=== PATIENT | male | born 1965 | race Caucasian/White ===

== ENCOUNTER 2018-05-19 16:24 | Inpatient (IN) | payer OTHER ==
--- NOTE | 2018-05-19 16:52 | EDPHY ---
HPI/HX/ROS/PE/MDM Narrative: CHIEF COMPLAINT: Abdominal pain HISTORY OF PRESENT ILLNESS: This patient is a 53 year old male with history of osteoarthritis. One hour ago , he developed paresthesias in his left chest. He subsequently developed a stabbing, aching pain in his LUQ and lower abdomen with associated nausea and vomiting. Nothing makes his pain better or worse. He denies hematuria. He endorses diarrhea for last two days. He has never had similar pain in the past. He notes he had a gastric bypass four years ago with significant weight loss following. The patient notes he has taken Percocet regularly for two years for osteoarthritis, but has not taken this for the past week. He denies any cardiac history. No history of diabetes. No fever, chills, shortness of breath, palpitations, urinary complaints, headache, lightheadedness, syncope. REVIEW OF SYSTEMS: A comprehensive 10 system review of systems is otherwise negative aside from elements mentioned in the history of present illness and medical decision making. PAST MEDICAL HISTORY: Osteoarthritis and chronic pain (tramadol, morphine, oxycodone, Percocet). SOCIAL HISTORY: . Employed. No alcohol, tobacco, or illicit drug use. VITAL SIGNS: Reviewed by me GENERAL: Pale, uncomfortable-appearing. In no respiratory distress. HEENT: Atraumatic. Eyes: No icterus, no injection. Mouth: moist mucous membranes. No erythema or lesions. Neck: supple with no adenopathy. LUNGS: Clear to auscultation bilaterally, no wheezes, rhonchi or rales. CARDIAC: Regular rate and rhythm, no rubs, murmurs or gallops. ABDOMEN: Abdominal tenderness throughout particularly left lateral, no guarding or rebound. Nondistended. BACK: No CVA tenderness. EXTREMITIES: No trauma. No edema. Range of motion is normal throughout. NEURO: Alert and oriented, grossly nonfocal. SKIN: Warm and dry, no rash. PSYCHIATRIC: Normal mentation, no agitation. Portions of this note were transcribed by a lpn or medical assistant. I personally performed a history, physical exam, medical decision making, and confirmed accuracy of information the transcribed note. ED Course: 53 year old male presents with acute abdominal pain beginning this afternoon one hour prior to arrival. Plan for labs including CBC, chemistries, liver panel. Plan to administer 1L IV NS and 1mg IV Dilaudid for symptom relief. Plan for CT abdomen/pelvis. Patient initially refused CT, but upon further discussion, he agrees. Plan to proceed with CT abdomen/pelvis without contrast. Additionally, patient notes he prefers morphine to Dilaudid, so we will manage pain with this. 18:[address] Roman, radiologist. CT abdomen/pelvis shows perforated viscus of unknown etiology. Patient re-examined. No fever. Pain improved with morphine; abdominal exam remains moderately tender, no distention. Patient's last PO was around 13:00 today. He has been counseled to remain NPO. 19:[address] Guajardo, general surgeon. She will consult. 1920 Patient will go to OR under the care of Dr. Guajardo. Plan to administer IV ceftriaxone and Flagyl. MDM: Diff dx of patients presenting complaint considered including but not limited to kidney stone, perforated viscus, diverticulitis with perforation, gastric ulcer, pancreatitis, bowel obstruction, opiate withdrawal. - Data Points Imaging Results: Imaging Impressions Abdomen/Pelvis CT 05/19/18 16:56 Impression: 1. Perforation of unknown etiology. If clinically indicated consider CT with IV contrast for further characterization and attempt to identify the etiology of the perforation. 2. No renal obstruction or urinary tract calculus. A message was left for Dr. Peters at 6:55 PM. Attention: This CT examination is specifically designed to evaluate patients who are clinically suspected of having acute obstructive uropathy. This examination does not use radiographic contrast, and as such, provides only a limited evaluation of the abdomen, pelvis and retroperitoneum. If there is further clinical suspicion for pathological conditions other than obstructive uropathy, a complete CT evaluation of the abdomen and pelvis utilizing intravenous, oral, and rectal contrast should be considered. General information for patients regarding this examination can be found at [email or web address]. If you have questions or comments about this report, please contact me at (hospital) or [phone] (cell). Imaging: Discussed imaging studies w/ call center operator Radiologist Laboratory Results: Laboratory Results 05/19/18 16:55 05/19/18 16:55 05/19/18 05/19/18 16:55 16:55 WBC 9.17 10^3/uL 10^3/uL (3.80-9.50) RBC 5.04 10^6/uL 10^6/uL (4.40-6.38) Hgb 15.6 g/dL g/dL (13.7-17.5) Hct 46.1 % % (40.0-51.0) MCV 91.5 fL fL (81.5-99.8) MCH 31.0 pg pg (27.9-34.1) MCHC 33.8 g/dL g/dL (32.4-36.7) RDW 13.6 % % (11.5-15.2) Plt Count 230 10^3/uL 10^3/uL (150-400) MPV 10.3 fL fL (8.7-11.7) Neut % (Auto) 58.5 % % (39.3-74.2) Lymph % (Auto) 32.9 % % (15.0-45.0) [place] % (Auto) 7.1 % % (4.5-13.0) Eos % (Auto) 0.8 % % (0.6-7.6) Baso % (Auto) 0.4 % % (0.3-1.7) Nucleat RBC Rel Count 0.0 % % (0.0-0.2) Absolute Neuts (auto) 5.36 10^3/uL 10^3/uL (1.70-6.50) Absolute Lymphs (auto) 3.02 10^3/uL H 10^3/uL (1.00-3.00) Absolute Monos (auto) 0.65 10^3/uL 10^3/uL (0.30-0.80) Absolute Eos (auto) 0.07 10^3/uL 10^3/uL (0.03-0.40) Absolute Basos (auto) 0.04 10^3/uL 10^3/uL (0.02-0.10) Absolute Nucleated RBC 0.00 10^3/uL 10^3/uL (0-0.01) Immature Gran % 0.3 % % (0.0-1.1) Immature Gran # 0.03 10^3/uL 10^3/uL (0.00-0.10) Sodium 138 mEq/L mEq/L (135-145) Potassium 4.3 mEq/L mEq/L (3.5-5.2) Chloride 108 mEq/L mEq/L (97-110) Carbon Dioxide 20 mEq/l L mEq/l (22-31) Anion Gap 10 mEq/L mEq/L (6-14) BUN 18 mg/dL mg/dL (7-23) Creatinine 0.9 mg/dL mg/dL (0.7-1.3) Estimated GFR > 60 Glucose 121 mg/dL H mg/dL (70-100) Calcium 9.2 mg/dL mg/dL (8.5-10.4) Total Bilirubin 0.8 mg/dL mg/dL (0.1-1.4) Conjugated Bilirubin 0.3 mg/dL mg/dL (0.0-0.5) Unconjugated Bilirubin 0.5 mg/dL mg/dL (0.0-1.1) AST 23 IU/L IU/L (17-59) ALT 51 IU/L IU/L (21-72) Alkaline Phosphatase 74 IU/L IU/L (38-126) Total Protein 7.4 g/dL g/dL (6.3-8.2) Albumin 4.3 g/dL g/dL (3.5-5.0) Medications Given: Discontinued Medications Hydromorphone HCl (Dilaudid) 1 mg IVP EDNOW ONE Stop: 05/19/18 16:56 Last Admin: 05/19/18 17:30 Dose: 1 mg Sodium Chloride (Ns) 1,000 mls @ 0 mls/hr IV EDNOW ONE; Wide Open PRN Reason: Protocol Stop: 05/19/18 16:56 Last Admin: 05/19/18 17:21 Dose: 1,000 mls Ceftriaxone Sodium/Dextrose (Rocephin 1 Gm (Premix)) 50 mls @ 100 mls/hr IV EDNOW ONE PRN Reason: Protocol Stop: 05/19/18 19:50 Last Admin: 05/19/18 19:30 Dose: 50 mls Morphine Sulfate (Morphine) 4 mg IVP EDNOW ONE Stop: 05/19/18 17:39 Last Admin: 05/19/18 17:45 Dose: 4 mg Morphine Sulfate (Morphine) 4 mg IVP EDNOW ONE Stop: 05/19/18 19:09 Last Admin: 05/19/18 19:19 Dose: 4 mg General Time Seen by Provider: 05/19/18 16:41 Initial Vital Signs: Initial Vital Signs Temperature (C) 37.2 C 05/19/18 16:31 Heart Rate 56 L 05/19/18 16:31 Respiratory Rate 17 05/19/18 16:31 Blood Pressure 117/74 05/19/18 16:31 O2 Sat (%) 99 05/19/18 16:31 O2 Delivery Mode Room Air Allergies/Adverse Reactions: No Known Allergies Allergy (Verified 05/20/18 08:51) Home Medications: Medication Instructions Recorded morphINE SR [Ms Contin/Oramorph 15 15 mg PO Q12H 05/19/18 mg (*)] traMADol HCL [Tramadol HCl] 50 mg PO Q6H PRN 05/19/18 Acetaminophen [Tylenol 325mg (*)] 325 mg PO Q6 PRN 05/20/18 Acetaminophen [Tylenol 325mg (*)] 325 - 650 mg PO Q4HRS PRN tab 05/26/18 Pantoprazole Sodium [Protonix 40mg 40 mg PO BID #60 tab 05/26/18 (*)] Sucralfate [Carafate 1 GM (*)] 1 gm PO ACHS #30 g 05/26/18 levOFLOXACIN [Levaquin] 500 mg PO DAILY 10 Days tablet 05/26/18 metroNIDAZOLE [Flagyl 500 mg (*)] 500 mg PO BID #20 tab 05/26/18 oxyCODONE IR [Oxycodone Ir (*)] 10 mg PO Q6H PRN #10 tab 05/26/18 Departure - Departure Disposition: [facility] Inpatient Acute Clinical Impression: Perforated viscus Abdominal pain Qualifiers: Abdominal location: generalized Qualified Code(s): R10.84 - Generalized abdominal pain Condition: Serious Report Scribed for: Suzanna Peters Report Scribed by: Judith Mata Date of Report: 05/19/18 Time of Report: 19:22
[2018-05-19] MEDS ORDERED: HYDROmorphONE/DILAUDID 2 MG/ML INJ IVP ONE (16:55)
[2018-05-19] MEDS ORDERED: NS 1,000 ML IV ONE (16:55)
[2018-05-19 17:18] LABS: PLATELET COUNT 230 10^3/uL (150-400)
[2018-05-19] MEDS ORDERED: HYDROmorphONE/DILAUDID 1 MG/ML INJ ONE (17:20)
[2018-05-19] MEDS ORDERED: BUPIVACAINE 0.5% 30 ML SDV ONE (19:36)
[2018-05-19] MEDS ORDERED: ACETAMINOPHEN 325 MG TAB PO PRN (19:48)
[2018-05-19] MEDS ORDERED: PROMETHAZINE HCL 25 MG/ML INJ IVP PRN (19:48)
[2018-05-19] MEDS ORDERED: ONDANSETRON 4 MG/2 ML VIAL IVP PRN ×2 (19:48→20:03)
[2018-05-19] MEDS ORDERED: MIDAZOLAM 2 MG/2 ML VIAL ONE (20:01)
[2018-05-19] MEDS ORDERED: MIDAZOLAM 2 MG/2 ML VIAL IVP ONE (20:02)
--- NOTE | 2018-05-19 20:02 | PDANEPAE ---
ANE History of Present Illness here for diagnostic lap ANE Past Medical History - Cardiovascular History Hx Hypertension: No Hx Arrhythmias: No Hx Chest Pain: No Hx Coronary Artery / Peripheral Vascular Disease: No Hx CHF / Valvular Disease: No Hx Palpitations: No - Pulmonary History Hx COPD: No Hx Asthma/Reactive Airway Disease: No Hx Recent Upper Respiratory Infection: No Hx Oxygen in Use at Home: No - Endocrine History Hx Diabetes: No Hypothyroid: No Hyperthyroid: No Obesity: no - Renal History Hx Renal Disorders: No - Liver History Hx Hepatic Disorders: No - Neurological & Psychiatric Hx Hx Neurological and Psychiatric Disorders: No - Cancer History Hx Cancer: No ANE Review of Systems Review of systems is: negative Review of Systems: - Exercise capacity Exercise capacity: >=4 METS ANE Patient History - Allergies Allergies/Adverse Reactions: No Known Allergies Allergy (Unverified 05/19/18 16:30) - Home Medications Home medications: home medication list seen and reviewed Home Medications: busPIRone [Buspar (*)] 5 mg PO Q6H 05/19/18 [Last Taken Unknown] morphINE SR [Ms Contin/Oramorph 15 mg (*)] 15 mg PO BID 05/19/18 [Last Taken Unknown] oxyCODONE HCL [Oxycodone HCl ER] 20 mg PO BID 05/19/18 [Last Taken Unknown] traMADol HCL [Tramadol HCl] 50 mg PO Q6H PRN 05/19/18 [Last Taken Unknown] - NPO status NPO Status: no food or drink >8 hours NPO Since - Liquids (Date): 05/19/18 NPO Since - Liquids (Time): 13:00 NPO Since - Solids (Date): 05/19/18 NPO Since - Solids (Time): 13:00 - Anes Hx Anes Hx: no prior problems - Smoking Hx Smoking Status: Never smoked ANE Labs/Vital Signs - Labs Result Diagrams: 05/19/18 16:55 05/19/18 16:55 - Vital Signs Vital Signs: reviewed preoperatively; see RN documention for details Blood Pressure: 101/65 Heart Rate: 67 Respiratory Rate: 20 O2 Sat (%): 95 Height: 170.18 cm Weight: 81.647 kg ANE Physical Exam - Airway Neck exam: FROM Mallampati Score: Class 1 Mouth exam: normal dental/mouth exam - Pulmonary Pulmonary: no respiratory distress - Cardiovascular Cardiovascular: regular rate and rhythym - ASA Status ASA Status: II ANE Anesthesia Plan Anesthesia Plan: general endotracheal anesthesia
[2018-05-19] MEDS ORDERED: ALBUTEROL 3 ML DEYVIAL IH PRN (20:03)
[2018-05-19] MEDS ORDERED: HYDROmorphONE/DILAUDID 2 MG/ML INJ IVP PRN (20:03)
[2018-05-19] MEDS ORDERED: NS 500 ML IV PRN (20:03)
[2018-05-19] MEDS ORDERED: NALOXONE HCL 0.4 MG/ML INJ IVP PRN (20:03)
[2018-05-19] MEDS ORDERED: PROPOFOL/EMULSION 500 MG/50 ML BOTTLE IV ONE (20:06)
[2018-05-19] MEDS ORDERED: fentaNYL 250 MCG/5 ML INJ ONE (20:09)
[2018-05-19] MEDS ORDERED: DEXAMETHASONE 4 MG/ML VIAL ONE ×2 (20:18)
[2018-05-19] MEDS ORDERED: PHENYLEPHRINE HCL 100 MCG/ML SYR ONE (20:19)
--- NOTE | 2018-05-19 20:21 | GHP ---
[f rep st] HISTORY AND PHYSICAL DATE OF ADMISSION: 05/19/2018 CHIEF COMPLAINT: Free air. HISTORY OF PRESENT ILLNESS: The patient is a 53-year-old man who presented to the emergency room wit h left-sided abdominal pain. He reported that he initially had some paresthesias in his chest and th en developed abdominal pain. He had associated nausea but no emesis. He has had diarrhea. He says this is the worst pain he has ever had. PAST MEDICAL HISTORY: Osteoarthritis of his knee for which he takes Percocet for regularly. PAST SURGICAL HISTORY: Gastric bypass 4 years ago for which he lost 170 pounds, umbilical hernia rep air with mesh prior to that. FAMILY HISTORY: Noncontributory. SOCIAL HISTORY: Denies tobacco or alcohol. He works at [email or web address]. REVIEW OF SYSTEMS: Very painful. No constipation. No chest pain. No shortness of breath. No anil turia. No dysuria. No dizziness. PHYSICAL EXAMINATION: VITAL SIGNS: 37.4, 67, 101/55, 20, 95% room air. GENERAL: Pleasant man lying on gurney, appears very uncomfortable. at bedside. HEENT: Normocephalic. No gross hearing deficits. Mucous membranes moist. No scleral icterus. Pup ils equal and round. Mucous membranes dry. LUNGS: Clear to auscultation bilaterally. No increased work of breathing. CARDIAC: Regular rate. ABDOMEN: Extremely tender with peritoneal signs. Bowel sounds hypoactive. He is soft with excessiv e skin. SKIN: Warm and dry. PSYCHIATRIC: Mood and affect normal. NEUROLOGIC: Grossly intact. IMAGING: Results reviewed. I personally reviewed the results of his CT scan as well as the images a nd he does have extraluminal air. LABORATORY DATA: White count 9.17, platelets 230. Chemistry panel within normal limits. IMPRESSION AND PLAN: The patient is a 53-year-old man with free air. I cannot see the origin of the air on this scan. I will take him to the operating room for diagnostic laparoscopy, possible laparo regan, possible bowel resection. He understands that I may not be able to find the source of the air. Risks and benefits, including but not limited to stroke, heart attack, , blood clots, infectio n, bleeding were all discussed. We also discussed damage to surrounding structures or negative explo ratory surgery. He had his questions answered to his satisfaction. He requested that his sign the consent due to his amount of pain. /[id number]/MODL
[2018-05-19] MEDS ORDERED: SUGAMMADEX SODIUM 200 MG/2 ML VIAL IVP ONE (21:38)
--- NOTE | 2018-05-19 21:57 | POSTOPPROG ---
Post Op Note Date of Operation: 05/19/18 Surgeon: Nini Guajardo Anesthesiologist: maurizio Anesthesia: GET(General Endotracheal) Pre-op Diagnosis: free air, abdominal pain Post-op Diagnosis: free air in abdomen Indication: free air, abdominal pain Procedure: exploratory laparoscopy with appendectomy Findings: purulent fluid in pelvis Inf/Abcess present in the surg proc area at time of surgery?: Yes Depth: Organ Space EBL: Minimal (10 mls) Drains: Iglmer Rinaldi Specimen(s): ABDOMINAL FLUID FOR PATH/CULTURE APPENDIX FOR PERMANENT
[2018-05-19] MEDS ORDERED: LACTULOSE 20 GM/30 ML UDCUP PO PRN (21:59)
[2018-05-19] MEDS ORDERED: MAGNESIUM HYDROXIDE 30 ML UDCUP PO PRN (21:59)
[2018-05-19] MEDS ORDERED: BISACODYL 10 MG SUPP PR PRN (21:59)
--- NOTE | 2018-05-19 22:03 | POSTANESTH ---
Post Anesthetic Evaluation Cardiovascular Status: Normal, Stable Respiratory Status: Normal, Stable Level of Consciousness/Mental Status: Can Participate in Eval Pain Control: Adequate, Prn Tx Ordered Nausea/Vomiting Control: Adequate, Prn Tx Ordered Complications Possibly Related to Anesthesia: None Noted
[2018-05-19] MEDS ORDERED: fentaNYL 100 MCG/2 ML INJ ONE (22:18)
[2018-05-19] MEDS: fentaNYL 100 MCG/2 ML INJ IVP PRN ×2 (22:20→22:29)
[2018-05-19] MEDS: oxyCODONE IR 5 MG TAB PO PRN (22:38)
[2018-05-19] MEDS: D5W NS 1,000 ML IV SCH (23:10)
--- NOTE | 2018-05-20 00:57 | CPEKG ---
Test Reason : OPEN Blood Pressure : / mmHG Vent. Rate : 055 BPM Atrial Rate : 055 BPM P-R Int : 122 ms QRS Dur : 093 ms QT Int : 427 ms P-R-T Axes : 066 013 073 degrees QTc Int : 409 ms Sinus rhythm Confirmed by Suzanna Peters ([id number]) on 05/20/2018 12:56:50 AM Referred By: Suzanna Peters Confirmed By:Suzanna Peters
[2018-05-20] MEDS: oxyCODONE IR 5 MG TAB PO PRN ×4 (01:39→13:05)
[2018-05-20 05:23] LABS: PLATELET COUNT 147 10^3/uL (150-400)
--- NOTE | 2018-05-20 07:17 | GOP ---
[f rep st] OPERATIVE REPORT DATE OF OPERATION: 05/19/2018 SURGEON: Nini Guajardo MD ANESTHESIA: General. ANESTHESIOLOGIST: Herminio Collins MD PREOPERATIVE DIAGNOSIS: Free air. POSTOPERATIVE DIAGNOSIS: Free air. Inflamed appendix. No definitive source for purulent fluid. PROCEDURE PERFORMED: Diagnostic laparoscopy with laparoscopic appendectomy and drain placement . FINDINGS: Purulent fluid around right pericolic gutter and in pelvis. SPECIMENS: Fluid for microbiology, appendix for permanent. INDICATIONS: The patient is a 53-year-old man who developed abdominal pain. It became severe. He p resented to the ER. A CT scan was obtained which showed free air without a distinct source. DESCRIPTION OF PROCEDURE: Patient was brought into the operating room, placed supine on the table, a nd general anesthesia was administered. His abdomen was prepped and draped in the usual sterile fash ion. I infiltrated all sites with 0.5% Marcaine prior to making incisions. I made an incision below his umbilicus. I elevated it and inserted the Veress needle, passed the hanging drop test, however, insufflation pressures were high. Due to his gastric bypass, I then elevated his tissue morning and used a long Veress needle to enter the abdomen. His abdomen ultimately insufflated easily to a pres sure of 15 mmHg. I then placed a long 5 mm trocar at this site. I explored his abdomen. There was purulent fluid by the right pericolic gutter and in the pelvis. I performed suction and sent this fo r microbiology. I began to explore his abdomen. The rectum and descending colon appeared normal. H is cecum and ascending colon were normal. His appendix appeared inflamed and there was fluid by this , but I did not see a distinct area of perforation. It did look inflamed on the outside, however, I could not tell if this was external or from internal. I divided the mesoappendix with the Harmonic S calpel. I divided the base with an Endo-TAM 45 white load. I placed an EndoCatch bag and retrieved it via the 10 mm trocar. Next, I ran the small bowel from the terminal ileum to the ligament of Trei tz. I could see where his previous gastric bypass [place] was. I did not see any abnormalities in this area. Explored his stomach. I opened the lesser sac and did not see any fluid collecting in t his area. I also lifted his gallbladder cephalad and did not see any issues here. I ran his small b owel 1 more time and again did not see any other abnormalities. I performed suction irrigation. I c losed the fascia at the 10 mm trocar site with a fascial closure device. I placed the drain in the l ower pelvic 5 mm trocar and sutured this into place with 3-0 nylon. I closed the other skin with 4-0 Monocryl, Dermabond applied. Sterile dressing applied around the drain. He was awakened in the ope rating room, extubated, transferred to PACU in stable condition. /[id number]/MODL
[2018-05-20] MEDS: SENNOSIDES/DOCUSATE SODIUM TAB PO SCH ×2 (08:35→22:01)
[2018-05-20] MEDS: ENOXAPARIN 40 MG/0.4 ML SYR SC SCH (08:36)
--- NOTE | 2018-05-20 09:30 | PDMN ---
Medical Necessity Medical necessity: Pt meets inpt criteria per MD order and [facility], Appendectomy, with Abscess or Peritonitis, by Laparoscopy, 2 days. 53 y/o presented w/severe abd pain w/CT showing free air, free fluid, and perforation of unknown etiology. Pt taken to OR for expl lap w/appendectomy and drain placement; was found to have purulent fluid in pelvis, sent for path/culture, IV ABX's. Anticipate>2MN for management of above.
[2018-05-20] MEDS: OXYCODONE/APAP 5/325 TAB PO PRN ×3 (10:29→22:00)
[2018-05-20] MEDS: D5W NS 1,000 ML IV SCH (10:31)
[2018-05-20] MEDS: POLYETHYLENE GLYCOL 3350 17 GM PKT PO PRN (16:23)
--- NOTE | 2018-05-20 16:38 | ASMTCMCOM ---
CM Note CM Note Notes: Patient to OR today for diagnostic laparoscopy, appendectomy and drain placement. Patient is independent at baseline, [facility] [employer] [facility] [employer]. Anticipate patient will discharge home independently. CM will continue to follow in case needs arise. Plan: LIkely Independent. Date Signed: 05/20/2018 04:37 PM Electronically Signed By:Leslie Bonilla RN
--- NOTE | 2018-05-20 17:12 | SOAPPROG ---
SOAP Progress Note Assessment/Plan: Assessment/plan: 53yo M POD#1 s/p diagnostic laparoscopy and appendectomy for free air. No perforation identified. Pain dramatically improved compared to presentation/pre-op Continue IV antibiotics JESSICA drain in place Clear liquid diet No flatus Encouraged ambulation Dispo: Continue inpatient until return of bowel function, pain controlled and S: Feeling much better then when he presented. No nausea. Not passing any flatus. O: General: Lying in bed, comfortable, no acute distress Respiratory: No increased work of breathing Abdomen: Bowel sounds present, abdomen soft. Tenderness to palpation around surgical incisions. Incisions clean, dry and intact without e/o infection. Psych: Mood and affect normal Neuro: Grossly intact Objective: Vital Signs Temp Pulse Resp BP Pulse Ox 37.5 C 76 16 121/75 H 96 05/20/18 15:00 05/20/18 15:00 05/20/18 15:00 05/20/18 15:00 05/20/18 15:00 Microbiology 05/19/18 20:57 Gram Stain - Final Peritoneal Fluid - Aspirate Laboratory Results 05/20/18 05:01 05/20/18 11:40 05/19/18 05/20/18 05/21/18 05:59 05:59 05:59 Intake Total 2049 Output Total 40 1395 Balance 2010 -1395 ICD10 Worksheet Patient Problems: Problems Problem Status Onset Abdominal pain Acute Perforated viscus Acute
[2018-05-20] MEDS: KETOROLAC 15 MG/1 ML SDV IVP SCH ×2 (18:24→23:18)
[2018-05-20] MEDS: morphINE SR 15 MG TAB PO SCH (18:25)
[2018-05-20] MEDS: traMADol 50 MG TAB PO PRN (20:37)
[2018-05-21] MEDS: OXYCODONE/APAP 5/325 TAB PO PRN ×3 (03:30→14:18)
[2018-05-21] MEDS: morphINE SR 15 MG TAB PO SCH ×2 (06:18→18:08)
[2018-05-21] MEDS: KETOROLAC 15 MG/1 ML SDV IVP SCH ×3 (06:18→18:08)
[2018-05-21 07:39] LABS: PLATELET COUNT 148 10^3/uL (150-400)
[2018-05-21] MEDS: SENNOSIDES/DOCUSATE SODIUM TAB PO SCH ×2 (07:52→20:09)
[2018-05-21] MEDS: ENOXAPARIN 40 MG/0.4 ML SYR SC SCH (07:52)
[2018-05-21] MEDS: oxyCODONE IR 5 MG TAB PO PRN ×3 (11:42→20:10)
--- NOTE | 2018-05-21 14:30 | SOAPPROG ---
SOAP Progress Note Assessment/Plan: Assessment/plan: 53yo M POD#2 s/p diagnostic laparoscopy and appendectomy for free air. No perforation identified. Pain continues to improve Continue IV antibiotics-WBC slightly higher today than presentation (9--->10.9) T-38.[address]-serosanguinous fluid at 8 am, purulent fluid at 2 pm Abdominal XR to re-eval for free air- pending Clear liquid diet No flatus Encouraged ambulation Dispo: Continue inpatient until return of bowel function, pain controlled S: Feeling better today but had an episode of sharp, crampy abdominal pain after drinking a cup of broth. Sharp pain with deep breathing. No nausea. Not passing any flatus yet but feels urge to. Very hungry. O: General: Lying in bed, comfortable, no acute distress Respiratory: CTA, No increased work of breathing Abdomen: Bowel sounds present, abdomen soft. Tenderness to palpation around surgical incisions and RLQ. Incisions clean, dry and intact without e/o infection. Psych: Mood and affect normal Neuro: Grossly intact 05/21/18 14:23 05/21/18 14:44 Objective: Vital Signs Temp Pulse Resp BP Pulse Ox 38.0 C 85 16 107/61 95 05/21/18 07:43 05/21/18 07:43 05/21/18 07:43 05/21/18 07:43 05/21/18 07:43 Microbiology 05/19/18 20:57 Gram Stain - Final Peritoneal Fluid - Aspirate Laboratory Results 05/21/18 07:15 05/21/18 07:15 05/20/18 05/21/18 05/22/18 05:59 05:59 05:59 Intake Total 0 1093 Output Total 40 1510 300 Balance 2009 -417 -300 ICD10 Worksheet Patient Problems: Problems Problem Status Onset Abdominal pain Acute Perforated viscus Acute
[2018-05-22] MEDS: KETOROLAC 15 MG/1 ML SDV IVP SCH ×5 (00:01→22:54)
[2018-05-22] MEDS: OXYCODONE/APAP 5/325 TAB PO PRN ×5 (00:44→22:54)
[2018-05-22 05:27] LABS: PLATELET COUNT 161 10^3/uL (150-400)
[2018-05-22] MEDS: morphINE SR 15 MG TAB PO SCH ×2 (05:31→18:22)
[2018-05-22] MEDS: SENNOSIDES/DOCUSATE SODIUM TAB PO SCH ×2 (08:12→19:45)
[2018-05-22] MEDS: ENOXAPARIN 40 MG/0.4 ML SYR SC SCH (08:13)
[2018-05-22] MEDS: oxyCODONE IR 5 MG TAB PO PRN (15:00)
[2018-05-22] MEDS: POLYETHYLENE GLYCOL 3350 17 GM PKT PO PRN (16:20)
--- NOTE | 2018-05-22 19:32 | GCON ---
[f rep st] CONSULTATION INFECTIOUS DISEASE CONSULTATION DATE OF CONSULTATION: 05/22/2018 REFERRING PHYSICIAN: Nini Guajardo MD REASON FOR CONSULTATION: Evaluation of source of peritonitis. HPI: A 53-year-old male with a past medical history of gastric bypass surgery approximately 4 years ago from which he has lost 140 pounds who was in his usual state of health until 05/19/2018, with a sudden onset of excruciating cramping, stabbing, diffuse abdominal pain, radiating to his left shoulder. Preceding the onset of this excruciating abdominal pain, patient had no preceding symptoms, such as fevers, chills, night sweats, new weight loss, anorexia. Patient had a colonoscopy about 4 or 5 years ago that he states was totally normal. On presentation to the emergency room, patient was found to have free air intra- abdominally and diffuse mesenteric edema, and was taken to the OR where diffuse purulence was identified. The entire bowel was run and no clear source of bowel perforation was identified. Cultures demonstrated Streptococcus and anaerobes. Patient has been empirically treated with IV Rocephin and metronidazole. Patient states he feels significantly improved following his surgery. He states "100%" improvement in abdominal pain. He wants to advance his diet. PAST MEDICAL HISTORY: 1. Obesity. 2. Early diabetes, which was resolved following weight loss from gastric bypass surgery. 3. Knee surgery. ALLERGIES: NKDA. MEDICATIONS: Metronidazole 500 IV q.8 h, ceftriaxone 1 g IV daily. SOCIAL HISTORY: Nonsmoker. No drinking. He works at [employer]. He is . FAMILY HISTORY: Negative for colon cancer. REVIEW OF SYSTEMS: A complete 10-point review of systems was performed and is negative, except as mentioned in the HPI. PHYSICAL EXAM: VITAL SIGNS: Not available at time of exam. GENERAL: This is a very pleasant, well-appearing male in no acute distress. HEENT: Poor dentition. NECK: Supple. CARDIOVASCULAR: Regular rate. No murmur. CHEST: Clear to auscultation bilaterally. ABDOMEN: Soft. Bowel sounds are present. Small laparoscopic incisions healing well. Midline drain with scant amount of purulent material in the bulb. No peritoneal signs. : No Katz. EXTREMITIES: No clubbing, cyanosis, or edema. NEUROLOGIC: He is alert and oriented x4. Moving all 4 extremities equally. LABORATORY/IMAGING: Creatinine is 0.8. Micro as per HPI. CT scan as per HPI. ASSESSMENT AND PLAN: This is a 53-year-old male with evidence of bowel perforation with free air and purulent peritonitis, unclear source. Patient is markedly improving postoperatively with decreased abdominal pain and slowly decreasing Gilmer-Rinaldi drain output. He also has a decline in fevers. 1. Continue intravenous Rocephin and metronidazole. 2. At this point do not feel that it is urgent to repeat CT scan. Patient may need repeat CT scan several weeks after completion of antibiotics and/or repeat colonoscopy. In this instance, I think that a gastrointestinal source is most likely due to presence of free air. 3. Patient was educated regarding risks and benefits of intravenous antibiotic therapy, including toxicity related to liver toxicity and complications related to Clostridium difficile. Thank you for this consultation. We will continue to see the patient on a daily basis. /[id number]/MODL MTDD
[2018-05-23] MEDS: oxyCODONE IR 5 MG TAB PO PRN ×2 (02:06→09:02)
[2018-05-23] MEDS: KETOROLAC 15 MG/1 ML SDV IVP SCH ×4 (05:39→23:56)
[2018-05-23] MEDS: morphINE SR 15 MG TAB PO SCH ×2 (05:39→18:26)
[2018-05-23 06:17] LABS: PLATELET COUNT 169 10^3/uL (150-400)
[2018-05-23] MEDS: SENNOSIDES/DOCUSATE SODIUM TAB PO SCH ×2 (09:04→19:43)
[2018-05-23] MEDS: ENOXAPARIN 40 MG/0.4 ML SYR SC SCH (09:04)
--- NOTE | 2018-05-23 10:52 | ASMTCMCOM ---
CM Note CM Note Notes: Pts case discussed w/ MARGE Amaya. Pt is not medically stable to d/c at this time. Pt will most likely d/c independent when medically stable. CM available for changes. Plan: Independent Date Signed: 05/23/2018 10:51 AM Electronically Signed By:SHADIA Neely
--- NOTE | 2018-05-23 12:08 | PCMIDPN ---
Assessment/Plan: # Purulent peritonitis with air in the abdomen on admission. Intraoperatively unclear source of bowel perforation/peritonitis: Today, Low-grade temp, persistent purulent drainage. Significant improvement in abdominal pain and resolution of leukocytosis. Reviewed pathology of appendix which shows inflammation from inside out, reflecting that appendicitis not the source of peritonitis. --check CT scan with oral contrast to re-evaluate for possible source due to persistent purulent discharge and low-grade fever --continue current antibiotic regimen which would cover Streptococcus and 2 anaerobes isolated # Systolic murmur: Unfortunately blood cultures not obtain admission. Based on organisms isolated, specifically Streptococcus would have some concern for endocarditis --check echo Medications Ceftriaxone 1 g IV daily, # 5 Metronidazole 500 mg IV Q 8 Microbiology 05/19/18 20:57 Peritoneal Fluid - Aspirate Anaerobic Culture - Preliminary Streptococcus Parasanguinis; ceftriaxone AMY = 0.25 Veillonella Parvula Group Rothia Mucilaginosa Subjective: Slight increase in abdominal pain today, plus flatus but no BM Objective: Vital Signs Temp Pulse Resp BP Pulse Ox 37.8 C 70 16 108/68 97 05/23/18 08:00 05/23/18 08:00 05/23/18 08:00 05/23/18 08:00 05/23/18 08:00 Microbiology 05/19/18 20:57 Gram Stain - Final Peritoneal Fluid - Aspirate Laboratory Results 05/23/18 05:59 05/23/18 05:59 05/22/18 05/23/18 05/24/18 05:59 05:59 05:59 Intake Total 500 Output Total 375 20 Balance 125 -20 - Physical Exam General Appearance: alert, no apparent distress EENT: No scleral icterus Respiratory: lungs clear, No accessory muscle use Cardiac/Chest: regular rate, rhythm, systolic murmur Extremities: No pedal edema Abdomen: non-tender, soft, other (Bowel sounds present; mid abdomen JESSICA drain with purulent drainage) Male Genitalia: No jade Skin: warm/dry, No diaphoresis, No rash Neuro/Psych: alert, normal mood/affect, oriented x 3 - Time Spent With Patient Time Spent with Patient: greater than 35 minutes (Patient examined and care coordinated with Dr. Nini Guajardo) Time Spent with Patient: Greater than 35 minutes spent on this patients care, greater than 50% of time spent counseling, educating, and coordinating care regarding the above mentioned plan. ICD10 Worksheet Patient Problems: Problems Problem Status Onset Abdominal pain Acute Perforated viscus Acute
[2018-05-23] MEDS: OXYCODONE/APAP 5/325 TAB PO PRN ×3 (13:04→23:57)
[2018-05-23] MEDS ORDERED: IOPAMIDOL (ISOVUE-300) 100 ML BTL ONE (14:53)
--- NOTE | 2018-05-23 15:41 | SOAPPROG ---
SOAP Progress Note Assessment/Plan: Assessment/plan: 53yo M s/p diagnostic laparoscopy and appendectomy for free air. No perforation identified. Pain continues to improve JESSICA drain in place- purulent fluid Peritoneal Fluid - Aspirate Anaerobic Culture - Preliminary Streptococcus Parasanguinis; ceftriaxone AMY = 0.25 Veillonella Parvula Group Rothia Mucilaginosa Continue IV Ceftriaxone and Flagyl-WBC WNL, afebrile Pathology-inflammatory source exterior to appendix ordered abdominal CT with IV and oral contrast to look for source of continued purulent drainage new systolic murmur-echocardiogram ordered Regular diet CT with fluid collection mid abdomen that might be amenable to drain. POsisble extrav from staple line in stomach - will get upper GI in am. NPO for now S: feels about the same as yesterday, but pain has improved, still has some abdominal cramping with eating. + flatus, no BM O: laying in bed, grimaces in anticipation of pain Lungs CTAB New systolic murmur? abdomen soft, slightly tender to palpation, + BS JESSICA with purulent fluid. Lower volume than yesterday 05/23/18 15:41 05/23/18 15:42 05/23/18 15:51 05/23/18 16:58 Objective: Vital Signs Temp Pulse Resp BP Pulse Ox 37.6 C 62 16 97/66 L 98 05/23/18 15:13 05/23/18 15:13 05/23/18 15:13 05/23/18 15:13 05/23/18 15:13 Microbiology 05/19/18 20:57 Gram Stain - Final Peritoneal Fluid - Aspirate Laboratory Results 05/23/18 05:59 05/23/18 05:59 05/22/18 05/23/18 05/24/18 05:59 05:59 05:59 Intake Total 500 Output Total 375 20 Balance 125 -20 ICD10 Worksheet Patient Problems: Problems Problem Status Onset Abdominal pain Acute Perforated viscus Acute
--- NOTE | 2018-05-23 18:05 | ECHO ---
[email or web address] [address] [address] Main: [phone] Echocardiography Examination Transthoracic Name: RUY ZHANG MR#: [id number] Study Date: 05/23/2018 Study Time: 01:43 PM Date of : 1965 Age: 53 year(s) Height: 170.2 cm (67 in.) Weight: 81.19 kg (179 lb.) BSA: 1.93 m2 Gender: Male Examination: Echo Contrast: Image Quality: Adequate Rhythm: Heart Rate: BP: 108 mmHg/68 mmHg Indication: New systolic murmur with unexplained abdominal infection, eval for endocarditis Procedure Staff Referring Physician: Upholstered Goods Crafter: Claribel Tomlinson [facility] Reading Physician: Ignacio Coats MD Requesting Provider: Indication: New systolic murmur with unexplained abdominal infection, eval for endocarditis Measurements Chambers AV/MV Label Value Normal Value Label Value Normal Value IVSd, 2D 1 cm (0.6cm - 1.1cm) AV PGmax 16 mmHg LVDd, 2D 5 cm (4.2cm - 5.9cm) AV PGmean 10 mmHg LVDs, 2D 3.4 cm (2.1cm - 4cm) AV Vmax 2.02 m/s LVEF, 2D 60 % (54% - 74%) JULIANA D (continuity eq. 1.9 cm2 LVEF, BP 63 % (55% - 70%) VTI) LVEF, MOD2 62 % (55% - 70%) MV A Vmax 0.72 m/s LVEF, MOD4 65 % (55% - 70%) MV DT 218 ms LVOT PGmean 7 mmHg MV E' lateral 0.14 m/s LVOT Vmean 1.29 m/s MV E' mean 0.13 m/s LVOTd 1.9 cm (1.9cm - 2.1cm) MV E' septal 0.12 m/s LVPWd, 2D 1 cm (0.6cm - 1cm) MV E Vmax 0.91 m/s RVDd, 2D 3 cm (1.9cm - 3.8cm) MV E/A 1.26 LADs, 2D 3.9 cm (3cm - 4cm) MV E/E' lateral 6.3 LAESV index, MOD4 40.9 ml/m2 MV E/E' mean 7 RA Area 20.1 cm2 MV E/E' septal 7.3 (0.5 - 1.7) Additional Vessels MV PGmax 5 mmHg Label Value Normal Value MV PGmean 2 mmHg AoAsc 3.3 cm MV PHT 0.07 s AoRoot, 2D 2.6 cm (1.4cm - 2.6cm) MV PHT 72 ms IVC 2.2 cm (1.2cm - 2.3cm) MV VTI 34.5 cm Patient: RUY ZHANG Study Date: 05/23/2018 Page 1 of 3 01:43 PM MVA D (continuity eq.) 2.3 cm2 MVA PHT 3.1 cm2 TV/PV Label Value Normal Value PV PGmax 6 mmHg PV Vmax, Caliper 1.21 m/s (0.6m/s - 0.9m/s) Conclusions (1) Left ventricular systolic ejection fraction was normal (60-65%) - normal LV thickness (2) Grosly normal RV size/function (3) Mild LAE (4) Mild mitral regurgitation (5) Trileaflet aortic valve with mild sclerosis (6) Trivial tricuspid regugitation (7) No pericardial effusion (8) If clinical suspicion is high, would consider COURTNEY for better assessment of the valve morphologies Findings Echo is to rule out endocarditis, may suggest COURTNEY for further evaluation. Left Ventricle: Left ventricle is normal in size. Normal global systolic left ventricular function. The ejection fraction, measured by Simpsons method, is 63 %. EF range is estimated at 60 % - 65 %. Left ventricle wall thickness is normal. There is no regional wall motion abnormalities. No LV hypertrophy. Left Atrium: The left atrium is mildly dilated. Mitral Valve: Mitral valve appears structurally normal. Mild mitral regurgitation. No mitral valve stenosis. Aortic Valve: Aortic leaflets are structurally normal. There is aortic sclerosis present. Tricuspid Valve: Tricuspid valve leaflets are structurally normal. Trivial tricuspid regurgitation. Pulmonic Valve: Pulmonic leaflets are structurally normal. Aorta: The aortic root size in 2D measures 2.6 cm. The ascending aorta measures 3.3 cm. Aorta Measurements AoRoot, 2D is 2.6 cm. IVC: The inferior vena cava is normal in size. Exam Details Procedure Ordered: Echo Procedure Status: Routine study Image Quality: Adequate Facility Location: Cardiac Echo 1 (No Signature Object) Patient: RUY ZHANG Study Date: 05/23/2018 Page 2 of 3 01:43 PM Patient: RUY ZHANG Study Date: 05/23/2018 Page 3 of 3 01:43 PM [id number]
[2018-05-24] MEDS: KETOROLAC 15 MG/1 ML SDV IVP SCH ×2 (05:43→11:19)
[2018-05-24] MEDS: morphINE SR 15 MG TAB PO SCH ×2 (05:43→17:48)
[2018-05-24] MEDS: OXYCODONE/APAP 5/325 TAB PO PRN ×3 (09:57→22:51)
[2018-05-24] MEDS: ENOXAPARIN 40 MG/0.4 ML SYR SC SCH (09:57)
[2018-05-24] MEDS: SENNOSIDES/DOCUSATE SODIUM TAB PO SCH ×2 (10:17→22:12)
--- NOTE | 2018-05-24 11:15 | PCMIDPN ---
Assessment/Plan: Assessment: Peritonitis-status post washout. Patient has upper gastrointestinal patsy on culture. He is covered with ceftriaxone and metronidazole currently. States that he feels much better than when he came in but not 100% yet. Underwent an upper GI Gastrografin study today without evidence of leakage. Will continue the ceftriaxone and metronidazole as long as he is inpatient. May be able to transition over to oral regimen including a fluoroquinolone and Flagyl for discharge if that is the agreed upon course by General surgery and Gastroenterology. Plan: 1. Continue both IV ceftriaxone and metronidazole while inpatient. 2. Consider oil change technician to oral Levaquin and metronidazole for discharge when appropriate. 3. Follow-up with General surgery and Gastroenterology opinions. 05/24/18 11:13 Subjective: Patient is resting comfortably in his hospital bed. He just returned from his upper gastro study with Gastrografin. He reports no new complaints. Does state that he does not feel like he is at 100% yet. Objective: Ceftriaxone # 6 Metronidazole # Vital Signs Temp Pulse Resp BP Pulse Ox 37.0 C 51 L 16 113/73 97 05/24/18 07:09 05/24/18 07:09 05/24/18 07:09 05/24/18 07:09 05/24/18 07:09 Microbiology 05/19/18 20:57 Gram Stain - Final Peritoneal Fluid - Aspirate Laboratory Results 05/23/18 05:59 05/23/18 05:59 05/23/18 05/24/18 05/25/18 05:59 05:59 05:59 Output Total 20 0 Balance -20 0 - Physical Exam General Appearance: WD/WN, alert, no apparent distress, non-toxic Respiratory: lungs clear, normal breath sounds, No respiratory distress Cardiac/Chest: regular rate, rhythm, No tachycardia Skin: normal color, warm/dry, No rash Neuro/Psych: alert, normal mood/affect, oriented x 3 ICD10 Worksheet Patient Problems: Problems Problem Status Onset Abdominal pain Acute Perforated viscus Acute
[2018-05-24] MEDS: oxyCODONE IR 5 MG TAB PO PRN (11:18)
--- NOTE | 2018-05-24 12:55 | SOAPPROG ---
SOAP Progress Note Assessment/Plan: Assessment:Plan: see full dictated consult to follow 53 y/o male with gastric bypass 4 year ago now with prob leak but not seen on image nor at surgery CT suggest at prox anastomosis but Gastrografin study w/o leak Consider EGD with possibility of making it worse, but that may make it easier to locate and treat. discussed with Dr. Bennett Pickering MD [phone] 05/24/18 12:53 Objective: Vital Signs Temp Pulse Resp BP Pulse Ox 37.0 C 51 L 16 113/73 97 05/24/18 07:09 05/24/18 07:09 05/24/18 07:09 05/24/18 07:09 05/24/18 07:09 Microbiology 05/19/18 20:57 Gram Stain - Final Peritoneal Fluid - Aspirate Laboratory Results 05/23/18 05:59 05/23/18 05:59 05/23/18 05/24/18 05/25/18 05:59 05:59 05:59 Output Total 20 0 Balance -20 0 ICD10 Worksheet Patient Problems: Problems Problem Status Onset Abdominal pain Acute Perforated viscus Acute
--- NOTE | 2018-05-24 13:34 | PDANEPAE ---
ANE History of Present Illness EGD for evaluation of leak ANE Past Medical History - Cardiovascular History Hx Hypertension: No Hx Arrhythmias: No Hx Chest Pain: No Hx Coronary Artery / Peripheral Vascular Disease: No Hx CHF / Valvular Disease: No Hx Palpitations: No - Pulmonary History Hx COPD: No Hx Asthma/Reactive Airway Disease: No Hx Recent Upper Respiratory Infection: No Hx Oxygen in Use at Home: No Hx Sleep Apnea: No Sleep Apnea Screening Result - Last Documented: Negative - Endocrine History Hx Diabetes: No Hypothyroid: No Hyperthyroid: No Obesity: no - Renal History Hx Renal Disorders: No - Liver History Hx Hepatic Disorders: No - Neurological & Psychiatric Hx Hx Neurological and Psychiatric Disorders: No - Cancer History Hx Cancer: No - Chronic Pain History Chronic Pain: Yes (right knee) ANE Review of Systems Review of Systems: - Exercise capacity Exercise capacity: >=4 METS ANE Patient History - Allergies Allergies/Adverse Reactions: No Known Allergies Allergy (Verified 05/20/18 08:51) - Home Medications Home medications: home medication list seen and reviewed Home Medications: morphINE SR [Ms Contin/Oramorph 15 mg (*)] 15 mg PO Q12H 05/19/18 [Last Taken 10 Days Ago ~05/10/18] traMADol HCL [Tramadol HCl] 50 mg PO Q6H PRN 05/19/18 [Last Taken 10 Days Ago ~ 05/10/18] Acetaminophen [Tylenol 325mg (*)] 325 mg PO Q6 PRN 05/20/18 [Last Taken Unknown] oxyCODONE IR [Oxycodone Ir (*)] 10 mg PO Q6H PRN 05/20/18 [Last Taken Unknown] - NPO status NPO Status: no food or drink >8 hours NPO Since - Liquids (Date): 05/24/18 NPO Since - Liquids (Time): 00:00 NPO Since - Solids (Date): 05/19/18 NPO Since - Solids (Time): 13:00 - Anes Hx Anes Hx: no prior problems - Smoking Hx Smoking Status: Never smoked - Alcohol Use Alcohol Use: None - Family Anes Hx Family Anes Hx: none ANE Labs/Vital Signs - Labs Result Diagrams: 05/23/18 05:59 05/23/18 05:59 - Vital Signs Blood Pressure: 113/73 Heart Rate: 51 Respiratory Rate: 16 O2 Sat (%): 97 Height: 170.18 cm Weight: 81.64 kg ANE Physical Exam - Airway Neck exam: FROM Mallampati Score: Class 2 Mouth exam: normal dental/mouth exam - Pulmonary Pulmonary: no respiratory distress - Cardiovascular Cardiovascular: regular rate and rhythym - ASA Status ASA Status: II ANE Anesthesia Plan Anesthesia Plan: GA with mask Total IV Anesthesia: Yes
[2018-05-24] MEDS ORDERED: fentaNYL 100 MCG/2 ML INJ ONE (13:35)
[2018-05-24] MEDS ORDERED: PROPOFOL/EMULSION 500 MG/50 ML BOTTLE IV ONE (13:35)
[2018-05-24] MEDS ORDERED: ePHEDrine SULFATE 25 MG/5 ML SYR ONE (14:01)
--- NOTE | 2018-05-24 14:22 | GIREPORT ---
[facility] Surgical [facility] - Endoscopy Department Patient Name: Tuan Paiz Procedure Date: 05/24/2018 1:07 PM Patient Type: Inpatient Attending MD/ ER Physician: Grady Pickering MD Procedure: Upper GI endoscopy Indications: Abnormal CT of the GI tract Providers: Grady Pickering MD Referring MD: Nini Guajardo MD Medicines: Propofol per Anesthesia = IV general with spont resps Complications: No immediate complications. Estimated blood loss: Minimal. Description of Procedure: After obtaining informed consent, the endoscope was passed under direct vision. Throughout the procedure, the patient's blood pressure, pulse, and oxygen saturations were monitored continuously. The Endoscope was intro duced through the mouth, and advanced to the afferent and efferent jejunal lo ops. The Colonoscope was introduced through the and advanced to the. The [facility] er GI endoscopy was accomplished without difficulty. The patient tolerated th e procedure well. Findings: The examined esophagus was normal. 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 The gastrojejunal anastomosis was characterized by inflammation and ulceration. This was traversed. The vthvw-uc-ytiqxrw limb was characterized by ulceration. T he lgozxbgg-rw-tcyvodf limb was examined. The exam was otherwise without abnormality. Estimated Blood Loss: Estimated blood loss was minimal. Post Op Diagnosis: - Normal esophagus. - Mecca-en-Y gastrojejunostomy with gastrojejunal anastomosis characteri zed by inflammation and ulceration. - Ulceration at anastomosis, best seen in retroflex view. Deep, and may be but not obviously the source of leak. - Both limbs hae normal mucosa. I advanced 70-100 cm down efferent limb w/o reaching the anastomosis. - Dr Guajardo was present for much of the exam. - The examination was otherwise normal. - No specimens collected. Recommendation: - Return patient to [facility] for [facility]. - Use Protonix (pantoprazole) 40 mg PO BID for 3 months. Maybe more depending clinical course - Repeat upper endoscopy in 2 months to check healing. - Thank you for allowing me to help in your patient's care. Do not hesi johnson to call with any questions. Attending Participation: I personally performed the entire procedure. Raheel Rodriguez M.D Grady Pickering MD 05/24/2018 2:22:13 PM This report has been signed electronicallyMatthew MD Raheel Number of Addenda: 0 Note Initiated On: 05/24/2018 1:07 PM [email or web address]
[2018-05-24] MEDS ORDERED: LABETALOL HCL 5 MG/ML 20 ML MDV IVP PRN (14:24)
[2018-05-24] MEDS ORDERED: fentaNYL 100 MCG/2 ML INJ IVP PRN (14:24)
[2018-05-24] MEDS ORDERED: MEPERIDINE 25 MG/0.5 ML AMP IVP PRN (14:24)
[2018-05-24] MEDS ORDERED: NALOXONE HCL 0.4 MG/ML INJ IVP PRN (14:24)
[2018-05-24] MEDS ORDERED: METOCLOPRAMIDE 10 MG/2 ML VIAL IVP PRN (14:24)
[2018-05-24] MEDS ORDERED: DEXAMETHASONE 4 MG/ML VIAL IVP PRN (14:24)
[2018-05-24] MEDS ORDERED: ALBUTEROL 3 ML DEYVIAL IH PRN (14:24)
[2018-05-24] MEDS ORDERED: PHENYLEPHRINE HCL 100 MCG/ML SYR IVP PRN (14:24)
[2018-05-24] MEDS ORDERED: PROMETHAZINE HCL 25 MG/ML INJ IVP PRN (14:24)
[2018-05-24] MEDS ORDERED: ONDANSETRON 4 MG/2 ML VIAL IVP PRN (14:24)
[2018-05-24] MEDS ORDERED: LR 500 ML IV PRN (14:24)
[2018-05-24] MEDS: PANTOPRAZOLE SODIUM 40 MG TAB PO SCH ×2 (14:51→22:12)
--- NOTE | 2018-05-25 08:43 | SOAPPROG ---
SOAP Progress Note Assessment/Plan: Assessment/Plan: 53yo M s/p diagnostic laparoscopy and appendectomy for free air. No perforation identified. EGD yesterday by Dr. Pickering showed ulceration at anastomosis Clear liquid diet and high dose PPI to allow ulceration to heal. Add carafate Pain controlled No nausea or vomiting JESSICA with decreasing quantity, purulence. Continue drain 3-5 more days Appreciate ID input Passing flatus and having bowel movements Dispo: Possibly home in next few days if continues to improve clinically. Seen with Dr. Perez S: No complaints this am. Doing well with clear liquids, no pain or nausea. Continues to feel better every day. O: General: Lying in bed, comfortable, no acute distress Respiratory: No increased work of breathing Abdomen: Bowel sounds present, abdomen soft, nontender. Incisions clean, dry and intact without e/o infection. Psych: Mood and affect normal Neuro: Grossly intact Objective: Vital Signs Temp Pulse Resp BP Pulse Ox 37.5 C 74 14 131/83 H 96 05/24/18 22:53 05/24/18 22:53 05/24/18 22:53 05/24/18 22:53 05/24/18 22:53 Microbiology 05/19/18 20:57 Gram Stain - Final Peritoneal Fluid - Aspirate Laboratory Results 05/23/18 05:59 05/23/18 05:59 05/24/18 05/25/18 05/26/18 05:59 05:59 05:59 Intake Total 50 Output Total 0 10 Balance 0 40 ICD10 Worksheet Patient Problems: Problems Problem Status Onset Abdominal pain Acute Perforated viscus Acute
[2018-05-25] MEDS: PANTOPRAZOLE SODIUM 40 MG TAB PO SCH ×2 (09:14→20:46)
[2018-05-25] MEDS: OXYCODONE/APAP 5/325 TAB PO PRN ×3 (09:14→23:57)
[2018-05-25] MEDS: ENOXAPARIN 40 MG/0.4 ML SYR SC SCH (09:14)
[2018-05-25] MEDS: morphINE SR 15 MG TAB PO SCH ×2 (09:14→18:00)
[2018-05-25] MEDS: SENNOSIDES/DOCUSATE SODIUM TAB PO SCH ×2 (09:30→20:46)
--- NOTE | 2018-05-25 09:53 | GCON ---
[f rep st] CONSULTATION REFERRING PHYSICIAN: Nini Guajardo MD INDICATIONS FOR PROCEDURE: Abnormal imaging, abdominal pain. HISTORY OF PRESENT ILLNESS: I have been asked by Dr. Guajardo to see to this patient in consultation for chief complaint of abnormal imaging. This patient is a pleasant 53-year-old male who has a past medical history significant for gastric bypass approximately 4 years ago from which he lost approximately 140 to 170 pounds. He presented to the emergency room on May 19 and was noted to have free air. He underwent exploratory laparoscopy without finding a source. Since then, he has been in the hospital with significant improvement in his abdominal pain, but continued abnormal imaging studies. He has been able to tolerate clear liquid diet. He has been afebrile and had normal white cell count. He continued to have some drainage out of his JESSICA, and abnormal imaging was suspicious for continued leak. I am here to consider endoscopic evaluation of his anastomoses. PAST MEDICAL HISTORY: Obesity, prediabetes secondary to his obesity, which resolved with weight loss after his gastric bypass surgery. PAST SURGICAL HISTORY: Knee surgery and gastric bypass surgery approximately 4 years ago. MEDICATIONS: At home included tramadol, morphine, MS Contin, Tylenol, and oxycodone. In hospital, his medications include Tylenol p.r.n., Dulcolax p.r.n. , ceftriaxone 1 g q.24, Lovenox 40 mg subcu valeria., milk of magnesia p.r.n., Flagyl 500 mg IV q.6, morphine 2-4 mg IV q.1 p.r.n., Zofran p.r.n., oxycodone IR p.r.n., oxycodone/acetaminophen 1-2 tabs q.4 p.r.n., MiraLAX 17 g p.r.n. daily, Phenergan p.r.n., Senokot 1-2 tabs p.o. b.i.d., Carafate, Ultram 50 mg p.o. q.6 p.r.n. ALLERGIES: No known drug allergies. SOCIAL HISTORY: He does not smoke. Drinks very infrequently. FAMILY HISTORY: No colon cancer to his knowledge. REVIEW OF SYSTEMS: A complete review of systems was performed and is negative other than noted in the HPI. PHYSICAL EXAM: GENERAL: A well-developed, well-nourished, overweight male in no acute distress. VITAL SIGNS: Blood pressure 108/68, pulse 59, respirations 16, 94% on room air, temperature 37.8. EYES: Anicteric. PARAMJIT, EOMI. MOUTH: No lesions. Moist mucous membranes. NECK: Supple. Full range of motion. No JVD. BACK: No spine tenderness. No CVA tenderness. LUNGS: Clear. CARDIAC: S1, S2. Regular rate and rhythm. No murmurs, rubs, or gallops appreciated. ABDOMEN: Bowel sounds are normal. Abdomen is soft with mild tenderness diffusely. No rebound. No guarding. EXTREMITIES: No cyanosis, clubbing. NEUROLOGIC: Cranial nerves intact. Nonfocal. SKIN: No stigmata of advanced liver disease. No rashes. LABORATORY AND DIAGNOSTIC FINDINGS: From the , WBC 7.71, hemoglobin 11.4, hematocrit 34.0, platelet count 169. Sodium 137, potassium 4.0, chloride 109, bicarb 24, BUN 26, creatinine 0.8. From the , AST 23, ALT 51, alkaline phosphatase 74, albumin 4.3, total protein 7.4. Upper GI series performed with Gastrografin this morning showed opacification of the gastric pouch and gastrojejunal limb with some contrast appearing to reside in a blind-ending portion along the posterior margin of the stomach and no imaging evidence of contrast extravasation. CT scan from May 23 revealed postoperative Mecca-en-Y bypass with a loculated left upper quadrant fluid collection containing gas suggestive of postoperative fluid collection versus early abscess formation. There is suggestion of oral extravasation of contrast at the proximal anastomosis posteriorly. It is difficult to discern if this is freely extravasation into the abdomen or extending into a blind pouch. Inferior to this in the mid abdomen, there is a gas-filled loculated collection measuring [address] scan from May 19, 2018: This was a noncontrast CT scan for flank pain, possible kidney stone: Intraabdominal free air of unknown etiology. ASSESSMENT: 1. Continued abnormal imaging suggesting possible leak. 2. History of gastric bypass surgery. 3. Peritonitis. RECOMMENDATIONS: 1. EGD for evaluation of both proximal and distal anastomosis if I am able to reach that. 2. Continue antibiotics as per Surgery. 3. Further recommendations to follow results of EGD. Given his possible continued leak, this will be a high-risk procedure. I will ask Anesthesia to perform the sedation and monitor the patient during the exam to allow for a complete and thorough exam. Thank you for allowing to participate in this patient's healthcare. Do not hesitate to call me with any questions. Sincerely, /[id number]/MODL MTDD
--- NOTE | 2018-05-25 11:40 | SOAPPROG ---
SOAP Progress Note Assessment/Plan: LATE ENTRY NOTE FROM 05/24/18 Assessment/Plan: 53yo M s/p diagnostic laparoscopy and appendectomy for free air. No perforation identified. GI consult NPO JESSICA with persistent purulent output Appreciate ID input Passing flatus Dispo: continue inpt. Seen with Dr. Guajardo. S: No worsening symptoms. Feels better (no nausea or pain) since he's NPO for procedure O: General: Lying in bed, comfortable, no acute distress Respiratory: No increased work of breathing Abdomen: Bowel sounds present, abdomen soft, nontender. Incisions clean, dry and intact without e/o infection. JESSICA purulence Psych: Mood and affect normal Neuro: Grossly intact Objective: Vital Signs Temp Pulse Resp BP Pulse Ox 37.3 C 53 L 16 124/72 H 96 05/25/18 08:00 05/25/18 08:00 05/25/18 08:00 05/25/18 08:00 05/25/18 08:00 Microbiology 05/19/18 20:57 Gram Stain - Final Peritoneal Fluid - Aspirate Laboratory Results 05/23/18 05:59 05/23/18 05:59 05/24/18 05/25/18 05/26/18 05:59 05:59 05:59 Intake Total 50 Output Total 0 10 Balance 0 40 ICD10 Worksheet Patient Problems: Problems Problem Status Onset Abdominal pain Acute Perforated viscus Acute
[2018-05-25] MEDS: SUCRALFATE 1 GM TAB PO SCH ×3 (12:12→20:46)
--- NOTE | 2018-05-25 16:21 | ASMTCMCOM ---
CM Note CM Note Notes: Pt to have endoscopy. Otherwise plan remains the same, pt will dc home w/support of when medically stable. CM available for any changes. DC Plan: Independent Date Signed: 05/25/2018 04:21 PM Electronically Signed By:Elizabeth Ramos RN
--- NOTE | 2018-05-25 16:53 | PCMIDPN ---
Assessment/Plan: Assessment: Peritonitis-status post washout. Patient has upper gastrointestinal patsy on culture. He is covered with ceftriaxone and metronidazole currently. States that he feels significantly improved. Head endoscopy yesterday and deep ulcer was found at the anastomosis which was not actively leaking but could of been the source of prior leakage. Will continue the ceftriaxone and metronidazole as long as he is inpatient. Plan to transition over to oral regimen including a fluoroquinolone and Flagyl for discharge. Likely a 10 day course. Plan: 1. Continue both IV ceftriaxone and metronidazole while inpatient. 2. Consider address change clerk to oral Levaquin and metronidazole for discharge when appropriate. 3. Follow-up with General surgery and Gastroenterology opinions. 05/24/18 11:13 05/25/18 16:51 Subjective: Patient is feeling better. No new complaints. No fevers or chills. No abdominal pain Objective: Ceftriaxone # 7 metronidazole # 7 Vital Signs Temp Pulse Resp BP Pulse Ox 37.1 C 61 12 122/83 H 96 05/25/18 16:00 05/25/18 16:00 05/25/18 16:00 05/25/18 16:00 05/25/18 16:00 Microbiology 05/19/18 20:57 Gram Stain - Final Peritoneal Fluid - Aspirate Laboratory Results 05/23/18 05:59 05/23/18 05:59 05/24/18 05/25/18 05/26/18 05:59 05:59 05:59 Intake Total 50 Output Total 0 10 Balance 0 40 - Physical Exam General Appearance: WD/WN, alert, no apparent distress, non-toxic Skin: normal color, warm/dry, No rash Neuro/Psych: alert, normal mood/affect, oriented x 3 ICD10 Worksheet Patient Problems: Problems Problem Status Onset Abdominal pain Acute Perforated viscus Acute
[2018-05-25] MEDS: oxyCODONE IR 5 MG TAB PO PRN ×2 (20:46→20:58)
[2018-05-25] MEDS: traMADol 50 MG TAB PO PRN (22:49)
[2018-05-26] MEDS: OXYCODONE/APAP 5/325 TAB PO PRN ×2 (04:12→15:19)
[2018-05-26] MEDS: morphINE SR 15 MG TAB PO SCH (06:34)
[2018-05-26 08:43] VITALS: BP 113/73
--- NOTE | 2018-05-26 09:02 | SOAPPROG ---
SOAP Progress Note Assessment/Plan: Assessment/Plan: 53yo M s/p diagnostic laparoscopy and appendectomy for free air. No perforation identified. EGD yesterday by Dr. Pickering showed ulceration at anastomosis Clear liquid diet and high dose PPI to allow ulceration to heal. FU with GI for EGD in 2months JESSICA - increased output today, no longer purulent. Continue drain 3-5 more days Appreciate ID input- home on PO levaquin and flagyl Passing flatus and having bowel movements Dispo: Grape juice leak test today. If negative and tolerates diet, may go home this afternoon vs tomorrow. Seen with Dr. Perez S: sharp pains yesterday afternoon. increased drain output but now serous. O: General: Lying in bed, comfortable, no acute distress Respiratory: No increased work of breathing Abdomen: Bowel sounds present, abdomen soft, nontender. Incisions clean, dry and intact without e/o infection. JESSICA yellow serous Psych: Mood and affect normal Neuro: Grossly intact 05/26/18 13:41 Objective: Vital Signs Temp Pulse Resp BP Pulse Ox 36.9 C 50 L 14 113/73 95 05/26/18 08:41 05/26/18 08:41 05/26/18 08:41 05/26/18 08:41 05/26/18 08:41 Laboratory Results 05/23/18 05:59 05/23/18 05:59 05/25/18 05/26/18 05/27/18 05:59 05:59 05:59 Intake Total 50 Output Total 10 60 100 Balance 40 -60 -100 ICD10 Worksheet Patient Problems: Problems Problem Status Onset Abdominal pain Acute Perforated viscus Acute
[2018-05-26] MEDS: ENOXAPARIN 40 MG/0.4 ML SYR SC SCH (09:13)
[2018-05-26] MEDS: PANTOPRAZOLE SODIUM 40 MG TAB PO SCH (09:16)
[2018-05-26] MEDS: SUCRALFATE 1 GM TAB PO SCH ×2 (09:16→12:35)
[2018-05-26] MEDS: SENNOSIDES/DOCUSATE SODIUM TAB PO SCH (09:17)
[2018-05-26] MEDS: oxyCODONE IR 5 MG TAB PO PRN (09:21)
--- NOTE | 2018-05-26 10:52 | SOAPPROG ---
SOAP Progress Note Assessment/Plan: Assessment: Anastomotic ulcer with recent bowel perfoation clinically better Plan: Continue current mediation Post op care per surgery Follow EGD in 2 months Will sign off for now 05/26/18 10:50 Subjective: CC abd pain Overall better but noting some crampy discomfort post eating Objective: Vital Signs Temp Pulse Resp BP Pulse Ox 36.9 C 50 L 14 113/73 95 05/26/18 08:41 05/26/18 08:41 05/26/18 08:41 05/26/18 08:41 05/26/18 08:41 Laboratory Results 05/26/18 10:10 05/25/18 05/26/18 05/27/18 05:59 05:59 05:59 Intake Total 50 Output Total 10 60 150 Balance 40 -60 -150 Physical Exam - Physical Exam General Appearance: alert Respiratory: lungs clear Cardiac/Chest: regular rate, rhythm Abdomen: non-tender, soft ICD10 Worksheet Patient Problems: Problems Problem Status Onset Abdominal pain Acute Perforated viscus Acute
--- NOTE | 2018-05-26 15:07 | ASDISCHSUM ---
Discharge Information Plan Status:Home with No Needs Medically Cleared to Leave:05/26/2018 Discharge Date:05/26/2018 CM D/C Disposition:Home, Routine, Self-Care ADT D/C Disposition:Home, Routine, Self-Care Projected Discharge Date:05/26/2018 Transportation at D/C:Family Discharge Delay Reason: Follow-Up Date:05/26/2018 Discharge Slot: Final Diagnosis: Placement Information Patient Contact Information Contact Name:DAVID Relationship: Address:[address] Work Phone: City:[facility] Phone: State/Zip Code:[place] [address] Email: Financial Information Financial Class:BCOP Primary Plan Desc:ESPERAN[employer] PPO Primary Plan Number:[id number] Secondary Plan Desc: Secondary Plan Number: Assessment Information LACE LACE Length of stay for Answers: 7-13 days current admission Acuity / Level of Answers: Yes Care: Did the patient have an inpatient admission? Comorbidities - select Answers: Opioid dependence all that apply / Chronic pain # of Emergency department Answers: 1-2 visits in the last 6 months Score: 13 Date Signed: 05/26/2018 03:04 PM Electronically Signed By:NIKOLAS Eubanks [facility] CM Progress Note CM Note CM Note Notes: Patient to OR today for diagnostic laparoscopy, appendectomy and drain placement. Patient is independent at baseline, works at [employer]. Anticipate patient will discharge home independently. CM will continue to follow in case needs arise. Plan: LIkely Independent. Date Signed: 05/20/2018 04:37 PM Electronically Signed By:Leslie Bonilla RN [facility] CM Progress Note CM Note CM Note Notes: Pts case discussed w/ MARGE Amaya. Pt is not medically stable to d/c at this time. Pt will most likely d/c independent when medically stable. CM available for changes. Plan: Independent Date Signed: 05/23/2018 10:51 AM Electronically Signed By:SHADIA Neely [facility] CM Progress Note CM Note CM Note Notes: Pt to have endoscopy. Otherwise plan remains the same, pt will dc home w/support of when medically stable. CM available for any changes. DC Plan: Independent Date Signed: 05/25/2018 04:21 PM Electronically Signed By:Elizabeth Ramos RN Case Management Discharge Plan Note Case Management Discharge Discharge Order Complete? Answers: Yes Patient to Obtain Answers: via Family Medications Transportation Arranged Answers: Family/Friends Discharge Comments Notes: Pt is discharging home today with family and no CM needs. Date Signed: 05/26/2018 03:07 PM Electronically Signed By:NIKOLAS Eubanks Intervention Information
--- NOTE | 2018-05-27 12:03 | GDS ---
[f rep st] DISCHARGE SUMMARY ADMITTING DIAGNOSES: Abdominal pain, nausea, vomiting. SECONDARY DIAGNOSES: Gastric ulcer, osteoarthritis, history of gastric bypass surgery. REASON FOR ADMISSION: 53-year-old man who presented to the emergency room complaining of severe abdo anthony pain, found on a CT scan to have pneumoperitoneum, admitted for surgical intervention, pain con trol, observation. HOSPITAL COURSE: He was taken to the operating room by Dr. Nini Guajardo on 05/19/2018 for exploratory laparoscopy to identify the source of perforation. At the time of surgery there was purulent fluid in his pelvis. No perforation was identified. She performed a laparoscopic appendectomy. Final pat hology showed inflammation exterior with no intrinsic appendicitis. A JESSICA drain was placed at the susi e of surgery. Cultures were obtained. He was started on empiric IV antibiotics and clear liquid t. On postoperative day #2 he had an elevated white blood cell count but no fevers. Postoperative d ay #3 cultures from surgery revealed strep para sanguinous, . Infectious Disease was consu lted who continued the IV Rocephin and Flagyl. Postoperative day #4 he continued to have persistent abdominal pain. An abdominal CT was performed which showed a left upper quadrant fluid collection wi th gas, question of early abscess. There is possible extravasation of oral contrast at the proximal anastomosis of his Mecca-en-Y. He was made n.p.o. On postoperative day #5 he had an upper GI perform ed that showed no evidence of extravasation of the oral contrast. He was then seen by GI, who perfor med an endoscopy. At the time of the procedure there was evidence of an inflammation and deep ulcera tion at the gastrojejunal anastomosis. There was no active leak, but this may have been the source o f perforation originally. On postoperative day #6 his JESSICA drain output changed to serous and decrease d in quantity. No longer purulent. He is tolerating clear liquids. His pain was well controlled an d he was quite anxious for discharge. DISCHARGE CONDITION: Discharged home in stable condition. Pain controlled with oral pain medication . Tolerating clears, ambulating independently. DISCHARGE MEDICATIONS: Refill for Percocet. New prescriptions for Protonix, Carafate, Levaquin and Flagyl. DISCHARGE INSTRUCTIONS AND FOLLOWUP: He will continue on high-dose PPI for 3 months. He will follow up with GI for a repeat endoscopy in 2 months. He will follow a clear liquid diet until his appoint ment with Dr. Guajardo later this week. Empty and record JESSICA drain output daily. Notify our office if d rain output becomes purulent again. He understands to call with any additional worsening symptoms, q uestions or concerns. /[id number]/MODL
== END 2018-05-26 15:49 | disposition home or self-care (01) | DRG 341 ==
LOC: F3E 22:50
PROVIDERS: ADMIT Surgery; ATTEND Surgery
PROC: 0DTJ4ZZ Resection of Appendix, Percutaneous Endoscopic Approach (ICD-10-PCS; principal; 2018-05-19 20:00)
PROC: 0D9W40Z Drainage of Peritoneum with Drainage Device, Percutaneous Endoscopic Approach (ICD-10-PCS; principal; 2018-05-19 20:00)
PROC: 0DJ08ZZ Inspection of Upper Intestinal Tract, Via Natural or Artificial Opening Endoscopic (ICD-10-PCS; 2018-05-24)
DX: K28.5 Chronic or unspecified gastrojejunal ulcer with perforation (principal); K65.0 Generalized (acute) peritonitis; M17.10 Unilateral primary osteoarthritis, unspecified knee; B95.5 Unspecified streptococcus as the cause of diseases classified elsewhere; Z98.84 Bariatric surgery status; Z79.891 Long term (current) use of opiate analgesic; R01.1 Cardiac murmur, unspecified
CPT/HCPCS: 96365; J0696; J1100; J1170; J1650; J1885; J2250; J2270; J2370; J2405; J2704; J3010; Q9967

== ENCOUNTER 2018-07-31 09:10 | Day surgery (SDC) | payer OTHER ==
[2018-07-31] MEDS ORDERED: LIDOCAINE 1% 2 ML INJ ID PRN (09:29)
[2018-07-31] MEDS ORDERED: LR 1,000 ML IV ONE (09:29)
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
[2018-07-31] MEDS ORDERED: PROPOFOL/EMULSION 500 MG/50 ML BOTTLE IV ONE (10:08)
--- NOTE | 2018-07-31 10:09 | PDGENHP ---
History & Physical Chief Complaint: hx anastomotic ulcer, abdo pain History of Present Illness: hx ulcer at anastomosis Pertinent Past, Social, Family History: tobacco - none. alcohol - none. obesity s/p gastric bypass, pain. FHx - no colon cancer Relevant Physical Exam: A+Ox3. CTA. S1S2,rr vik. +BS soft some mild tenderness no r/g Cardiorespiratory Assessment: class II
[2018-07-31] MEDS ORDERED: NALOXONE HCL 0.4 MG/ML INJ IVP PRN (10:29)
--- NOTE | 2018-07-31 11:00 | GIREPORT ---
[facility] - Endoscopy Department Patient Name: Tuan Paiz Procedure Date: 07/31/2018 10:04 AM Patient Type: Outpatient Attending MD/ ER Physician: Grady Pickering MD Procedure: Upper GI endoscopy Indications: Follow-up of acute gastrojejunal ulcer Providers: Grady Pickering MD Referring MD: Reese Augutse MD Medicines: Propofol per Anesthesia Complications: No immediate complications. Estimated blood loss: Minimal. Description of Procedure: After obtaining informed consent, the endoscope was passed under direct vision. Throughout the procedure, the patient's blood pressure, pulse, and oxygen saturations were monitored continuously. The Endoscope was intro duced through the mouth, and advanced to the afferent and efferent jejunal lo ops. The upper GI endoscopy was accomplished without difficulty. The patient tolerated the procedure well. Findings: The examined esophagus was normal. 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 The gastrojejunal anastomosis was characterized by edema and erythema. This was traversed . The siemb-qd-[id number] limb was characterized by edema and erythema. Diffuse mildly erythematous mucosa without bleeding was found in the ga stric body. Biopsies were taken with a cold forceps for histology. Estimated blood loss was minimal. The examined jejunum was normal. Estimated Blood Loss: Estimated blood loss was minimal. Post Op Diagnosis: - Normal esophagus. - Mecca-en-Y gastrojejunostomy with gastrojejunal anastomosis characteri zed by edema and erythema. - No ulcer noted. - Erythematous mucosa in the gastric body. Biopsied. - Normal examined jejunum. Recommendation: - Await pathology results. - My office will call with the pathology result with 5-7 days. If you h ave not heard from my office by 12-14, do not assume the pathology is tao l, please call [phone] to get the pathology results. - Continue present medications. - Can consider GI prophylaxis or start treatment with symptoms. His pre vious ulcer appears to have healed - Discharge patient to home (ambulatory). - Return to primary care physician as previously scheduled. - Thank you for allowing me to help in your patient's care. Do not hesi johnson to call with any questions. Attending Participation: I personally performed the entire procedure. Raheel Rodriguez M.D Grady Pickering MD 07/31/2018 10:59:37 AM This report has been signed electronicallyMatthew MD Raheel Number of Addenda: 0 Note Initiated On: 07/31/2018 10:04 AM [email or web address]
[2018-07-31 11:51] VITALS: BP 95/58
== END 2018-07-31 11:46 | disposition home or self-care (01) ==
LOC: FSGY 09:10
PROVIDERS: ATTEND Internal Medicine Gastroenterology
PROC: 0DB68ZX Excision of Stomach, Via Natural or Artificial Opening Endoscopic, Diagnostic (ICD-10-PCS; principal; 2018-07-31 10:30)
DX: K29.70 Gastritis, unspecified, without bleeding (principal); K28.9 Gastrojejunal ulcer, unspecified as acute or chronic, without hemorrhage or perforation; Z98.84 Bariatric surgery status
CPT/HCPCS: J2704